=== PATIENT | female | born 1950 | race Caucasian/White ===

== ENCOUNTER → 2018-05-01 01:33 | Outpatient (CLI) | payer OTHER, SELFPAY ==
--- NOTE | 2018-05-01 11:22 | DI.REPORT_ITS ---
SYMPTOMS/DIAGNOSIS: SCREENING, Z12.31 MAMMOGRAM: Mammograms were interpreted according to the usual protocol including computer analysis with CAD system, tomosynthesis and C view imaging. Comparison with prior examinations. Breast density B. No suspicious masses or microcalcifications are seen. The well circumscribed nodule in the inferior right breast appears stable. The skin and axilla are unremarkable. IMPRESSION: No evidence for malignancy. Yearly mammography is recommended. Category 2. MQSA ASSESSMENT OF FINDINGS: Negative with benign findings. Category 2. Patient will receive a letter notifying them of these results. BI-RADS category B. There are scattered areas of fibroglandular density.
== END ==
PROVIDERS: Visit Provider Nurse Practitioner Family
DX: Z12.31 Encounter for screening mammogram for malignant neoplasm of breast (principal)
CPT/HCPCS: 77063; 77067

== ENCOUNTER 2018-05-23 18:09 | Outpatient (REF) | payer OTHER, SELFPAY ==
[2018-05-23 22:00] LABS: Abs Immature Grans 0.02 k/cumm (0.0-0.09); Absolute Basophil Count 0.02 k/cumm (0.0-0.2); Absolute Eosinophil Count 0.14 k/cumm (0.0-0.7); Absolute Monocyte Count 0.69 k/cumm (0.11-0.7); Basophils % 0.3; HCT 38.6 % (36.0-46.0); HGB 12.9 g/dL (12.0-15.5); Immature Grans % 0.3; Mean Corp. HGB Concentration 33.4 g/dL (32.0-36.0); Mean Corpuscular Hemoglobin 30.1 pg (27.0-33.0); Mean Platelet Volume 11.8 fL (8.0-11.0); Monocytes % 9.8; Neutrophils % 46.6; Platelet Count 276 x1000/uL (130-400); RBC 4.29 m/cumm (4.00-5.20); RBC Distribution Width 14.3 % (11.7-14.6); White Blood Cell Count 7.07 k/cumm (4.4-10.8)
[2018-05-23 22:22] LABS: ALT 19 U/L (12-78); AST 12 U/L (15-37); Albumin 3.7 g/dL (3.4-5.0); Alkaline Phosphatase 64 U/L (46-116); Anion Gap 9.7 mmol/L (3-11); BUN 14 mg/dL (7-18); Bilirubin, Total 0.2 mg/dL (0.2-1.0); CO2 28.3 mmol/L (21.0-32.0); CREATININE 0.86 mg/dL (0.55-1.02); Calcium 9.1 mg/dL (8.5-10.1); Chloride 102 mmol/L (98-107); Glucose 98 mg/dL (70-100); Potassium 3.9 mmol/L (3.5-5.1); Sodium 140 mmol/L (136-145); Total Protein 6.6 g/dL (6.4-8.2)
[2018-05-23 22:42] LABS: Iron 34 ug/dL (50-175); Total Iron Binding Capacity 269 ug/dL (250-450); Transferrin Sat 13 % (15-50)
[2018-05-23 22:47] LABS: Hemoglobin A1C 5.9 % (4.5-6.2)
[2018-05-24 00:27] LABS: Ferritin 63 ng/mL (8-388)
== END 2018-05-23 18:29 ==
LOC: NCHCN 18:09
PROVIDERS: Visit Provider Nurse Practitioner
DX: R61 Generalized hyperhidrosis (principal); R53.83 Other fatigue; F41.9 Anxiety disorder, unspecified
CPT/HCPCS: 80053; 82728; 83036; 83540; 83550; 84443; 85025

== ENCOUNTER 2018-05-25 00:33 | Outpatient (CLI) | payer OTHER, SELFPAY ==
--- NOTE | 2018-05-25 09:20 | DI.RAD_ITS ---
SYMPTOM/DIAGNOSIS: NIGHT SWEATS, R61, FATIGUE, R53.83, ANXIETY, F41.90 FRONTAL AND LATERAL CHEST: Comparison is made with 08/04/03. Heart size is within normal limits. There is tortuosity of the thoracic aorta. The lungs show no focal infiltrates, effusions or pneumothoraces. There is plate atelectasis in the left mid lung. Degenerative changes are seen in the spine. IMPRESSION: No acute pulmonary process. Atelectasis or scarring in the left mid lung.
== END 2018-05-25 00:53 ==
PROVIDERS: Visit Provider Nurse Practitioner
DX: R61 Generalized hyperhidrosis (principal); R53.83 Other fatigue; J98.4 Other disorders of lung; F41.9 Anxiety disorder, unspecified
CPT/HCPCS: 71046

== ENCOUNTER 2019-05-07 00:31 | Outpatient (CLI) | payer OTHER, SELFPAY ==
--- NOTE | 2019-05-07 09:00 | DI.MAMMO_ITS ---
SYMPTOM/DIAGNOSIS: SCREENING Z12.39 BILATERAL SCREENING MAMMOGRAM: Mammograms were interpreted according to the usual protocol including computer analysis with CAD system, tomosynthesis and C view imaging. Comparison is made with exams from 2014 through 2018. The breasts are composed of scattered fibroglandular densities, breast density category B. There is a stable nodule in the inferior right breast. No suspicious masses or suspicious microcalcifications are seen. There has been no significant change in either breast. IMPRESSION: Category 2, negative mammogram with benign findings. Yearly screening mammography is recommended. Breast density category B. MQSA ASSESSMENT OF FINDINGS: Negative with benign findings. Category 2. Patient will receive a letter notifying them of these results. BI-RADS category B. There are scattered areas of fibroglandular density.
== END 2019-05-07 00:51 ==
PROVIDERS: PCP Nurse Practitioner; Visit Provider Nurse Practitioner
DX: Z12.31 Encounter for screening mammogram for malignant neoplasm of breast (principal)
CPT/HCPCS: 77063; 77067

== ENCOUNTER 2020-05-19 12:21 | Outpatient (REF) | payer OTHER, SELFPAY ==
[2020-05-19 18:42] LABS: HCT 41.6 % (36.0-46.0); HGB 13.7 g/dL (11.2-15.7); MCH 30.1 pg (27.0-33.0); MCHC 32.9 % (32.0-36.0); MCV 91.4 fL (80-95); MPV 11.7 fL (8.0-11.0); Platelet Count 273 10^3/uL (130-400); RBC 4.55 10^6/uL (3.93-5.22); RDW 13.5 % (11.7-14.6); WBC 8.32 10^3/uL (4.4-10.8)
[2020-05-19 19:01] LABS: ALT 22 U/L (14-59); AST 16 U/L (15-37); Alkaline Phosphatase 58 U/L (46-116); BUN 11 mg/dL (7-18); Bilirubin, Total 0.4 mg/dL (0.2-1.0); CREATININE 0.84 mg/dL (0.55-1.02); Calcium 9.3 mg/dL (8.5-10.1); Calculated LDL 187 mg/dL (<100); Chloride 102 mmol/L (98-107); Cholesterol 263 mg/dL (<200); Glucose 84 mg/dL (74-106); HDL Cholesterol 46 mg/dL (40-60); Potassium 4.2 mmol/L (3.5-5.1); Sodium 138 mmol/L (136-145); Total Protein 7.1 g/dL (6.4-8.2); Triglyceride 150 mg/dL (<150)
[2020-05-19 19:03] LABS: Hemoglobin A1C 5.6 % (<5.7)
[2020-05-21 05:42] LABS: Vitamin D 25 Total 61.5 ng/ml (30-100)
== END 2020-05-19 12:41 ==
LOC: NCHCN 12:21
PROVIDERS: PCP Nurse Practitioner; Visit Provider Nurse Practitioner
DX: Z00.00 Encounter for general adult medical examination without abnormal findings (principal); R73.09 Other abnormal glucose; I10 Essential (primary) hypertension; M85.80 Other specified disorders of bone density and structure, unspecified site; Z86.2 Personal history of diseases of the blood and blood-forming organs and certain disorders involving the immune mechanism
CPT/HCPCS: 80053; 80061; 82306; 85027; 83036

== ENCOUNTER 2020-05-26 00:33 | Outpatient (CLI) | payer OTHER, SELFPAY | END 2020-05-26 00:53 | PROVIDERS: PCP Nurse Practitioner; Visit Provider Nurse Practitioner | DX: R69 Illness, unspecified (principal) ==

== ENCOUNTER 2021-05-21 07:32 | Outpatient (REF) | payer OTHER, SELFPAY ==
[2021-05-21 14:48] LABS: HCT 40.4 % (36.0-46.0); HGB 13.3 g/dL (11.2-15.7); MCHC 32.9 % (32.0-36.0); MCV 91.2 fL (80-95); MPV 12.1 fL (8.0-11.0); Platelet Count 280 10^3/uL (130-400); RBC 4.43 10^6/uL (3.93-5.22); RDW 13.9 % (11.7-14.6); RDW-SD 47.5 fL; WBC 6.03 10^3/uL (4.4-10.8)
[2021-05-21 15:09] LABS: Hemoglobin A1C 5.9 % (<5.7)
[2021-05-21 15:10] LABS: Anion Gap 10.1 mmol/L (3-11); BUN 15 mg/dL (7-18); CO2 28.9 mmol/L (21.0-32.0); CREATININE 0.9 mg/dL (0.55-1.02); Calcium 9.3 mg/dL (8.5-10.1); Calculated LDL 201 mg/dL (<100); Chloride 105 mmol/L (98-107); Cholesterol 264 mg/dL (<200); Glucose 106 mg/dL (74-106); HDL Cholesterol 46 mg/dL (40-60); Potassium 4.7 mmol/L (3.5-5.1); Sodium 144 mmol/L (136-145); Triglyceride 87 mg/dL (<150)
== END 2021-05-21 07:33 | disposition home or self-care (01) ==
LOC: NCHCN 07:32
PROVIDERS: PCP Nurse Practitioner; Visit Provider Nurse Practitioner Family
DX: I10 Essential (primary) hypertension (principal); E78.5 Hyperlipidemia, unspecified; R73.03 Prediabetes; B07.0 Plantar wart; F17.200 Nicotine dependence, unspecified, uncomplicated; Z86.2 Personal history of diseases of the blood and blood-forming organs and certain disorders involving the immune mechanism; Z00.00 Encounter for general adult medical examination without abnormal findings
CPT/HCPCS: 80048; 80061; 85027; 83036

== ENCOUNTER 2021-07-06 18:01 | Outpatient (REF) | payer OTHER, SELFPAY ==
[2021-07-06 20:15] LABS: Bilirubin Negative (Negative); Blood Large (Negative); Clarity Cloudy (Clear); Glucose Negative (Negative); Ketones Negative (Negative); Leukocyte Esterase Moderate (Negative); Nitrite Negative (Negative); Specific Gravity 1.025 (1.005-1.025); Urobilinogen 0.2 EU/dL (Up TO 0.2)
[2021-07-06 20:25] LABS: Bacteria Moderate HPF (Negative); C & S Indicated? Yes; RBC 20-50 HPF (0-2); WBC >50 HPF (0-5)
== END 2021-07-06 18:02 | disposition home or self-care (01) ==
LOC: LBN 18:01
PROVIDERS: PCP Nurse Practitioner; Visit Provider Physician Assistant
DX: N39.0 Urinary tract infection, site not specified (principal)
CPT/HCPCS: 87077; 81003; 81015; 87086; 87186

== ENCOUNTER 2021-12-07 14:03 | Outpatient (REF) | payer OTHER, SELFPAY ==
[2021-12-07 17:44] LABS: Anion Gap 9.9 mmol/L (3-11); BUN 16 mg/dL (7-18); CO2 28.1 mmol/L (21.0-32.0); CREATININE 0.9 mg/dL (0.55-1.02); Calculated LDL 165 mg/dL (<100); Chloride 104 mmol/L (98-107); Cholesterol 242 mg/dL (<200); Glucose 94 mg/dL (74-106); HDL Cholesterol 48 mg/dL (40-60); Potassium 4.5 mmol/L (3.5-5.1); Sodium 142 mmol/L (136-145); Triglyceride 149 mg/dL (<150)
[2021-12-07 17:54] LABS: HCT 39.4 % (36.0-46.0); HGB 12.7 g/dL (11.2-15.7); MCHC 32.2 % (32.0-36.0); MCV 93.1 fL (80-95); MPV 11.6 fL (8.0-11.0); Platelet Count 318 10^3/uL (130-400); RBC 4.23 10^6/uL (3.93-5.22); RDW 14.1 % (11.7-14.6); RDW-SD 48.4 fL; WBC 6.96 10^3/uL (4.4-10.8)
[2021-12-07 18:23] LABS: Hemoglobin A1C 6.1 % (<5.7)
== END 2021-12-07 14:04 | disposition home or self-care (01) ==
LOC: LBN 14:03
PROVIDERS: PCP Nurse Practitioner; Visit Provider Nurse Practitioner Family
DX: R73.03 Prediabetes (principal); I10 Essential (primary) hypertension; E78.5 Hyperlipidemia, unspecified; Z86.2 Personal history of diseases of the blood and blood-forming organs and certain disorders involving the immune mechanism
CPT/HCPCS: 80048; 80061; 85027; 83036

== ENCOUNTER 2022-09-20 18:14 | Outpatient (REF) | payer MEDICARE, SELFPAY | END 2022-09-20 18:15 | disposition home or self-care (01) | LOC: LBN 18:14 | PROVIDERS: PCP Nurse Practitioner; Visit Provider Nurse Practitioner Family | DX: L08.89 Other specified local infections of the skin and subcutaneous tissue | CPT/HCPCS: 87070; 87205 ==

== ENCOUNTER 2022-11-09 01:54 | Outpatient (CLI) | payer MEDICARE, SELFPAY ==
--- NOTE | 2022-11-09 11:48 | DI.MAMMO_ITS ---
Exam(s) MAMMO SCREENING EXAM: MAMMO SCREENING CLINICAL HISTORY: SCREENING, Z12.39 TECHNIQUE: Mammograms were interpreted according to the usual protocol including computer analysis w [place] CAD system, tomosynthesis and C-view imaging. COMPARISON: 2013 through 2018 FINDINGS: The breasts are composed of scattered fibroglandular densities, Breast Density category B. No suspicious masses or suspicious microcalcifications are seen. There is stable area of nodularity in the inferior right breast. No skin thickening or abnormal axillary lymph nodes are seen. There has been no significant change from prior exams. IMPRESSION: BI-RADS Cat 2 - Benign Findings Yearly screening mammography is recommended. Breast Density - Category B, scattered fibroglandular densities. A negative radiographic report should not delay biopsy if a dominant or clinically suspicious mass is present. Up to ten percent of cancers are not identified on mammography. A negative report may reinforce clinical impression. Adenosis and dense breasts may obscure an underlying neoplasm. False positive reports average 6 to 10%. Patient will receive a letter notifying them of these results.
== END 2022-11-09 02:14 ==
PROVIDERS: PCP Nurse Practitioner; Visit Provider Nurse Practitioner Family
DX: Z12.31 Encounter for screening mammogram for malignant neoplasm of breast (principal); R92.8 Other abnormal and inconclusive findings on diagnostic imaging of breast
CPT/HCPCS: 77063; 77067

== ENCOUNTER 2023-07-24 20:20 | Outpatient (REF) | payer MEDICARE, SELFPAY ==
[2023-07-24 20:48] LABS: Abs Immature Grans 0.02 10^3/uL (0.0-0.06); Absolute Basophil Count 0.02 10^3/uL (0.0-0.2); Absolute Eosinophil Count 0.01 10^3/uL (0.0-0.7); Absolute Lymphocyte Count 2.85 10^3/uL (1.2-3.4); Absolute Monocyte Count 0.55 10^3/uL (0.1-0.8); Absolute Neutrophil Count 5.33 10^3/uL (1.2-6.7); Basophils % 0.2; Eosinophils % 0.1; HGB 12.8 g/dL (11.2-15.7); Immature Grans % 0.2; Lymphocytes % 32.5; MCH 29.7 pg (27.0-33.0); MCHC 32.8 % (32.0-36.0); MCV 91 fL (80-95); MPV 11.9 fL (8.0-11.0); Monocytes % 6.3; Neutrophils % 60.7; Platelet Count 286 10^3/uL (130-400); RBC 4.31 10^6/uL (3.93-5.22); RDW 14.5 % (11.7-14.6); RDW-SD 48.1 fL; WBC 8.78 10^3/uL (4.4-10.8)
[2023-07-24 21:04] LABS: ALT 21 U/L (14-59); AST 19 U/L (15-37); Alkaline Phosphatase 54 U/L (46-116); Anion Gap 6.7 mmol/L (3-11); BUN 15 mg/dL (7-18); Bilirubin, Total 0.4 mg/dL (0.2-1.0); CO2 28.3 mmol/L (21.0-32.0); CREATININE 0.9 mg/dL (0.55-1.02); Calcium 9.9 mg/dL (8.5-10.1); Chloride 101 mmol/L (98-107); Estimated GFR 67.92 (mL/min/1.73m2); FREE T4 0.99 ng/dL (0.76-1.46); Glucose 97 mg/dL (74-106); Potassium 4.3 mmol/L (3.5-5.1); Sodium 136 mmol/L (136-145); TSH 1.18 uIU/mL (0.36-3.74); Total Protein 7.5 g/dL (6.4-8.2)
[2023-07-24 21:07] LABS: Hemoglobin A1C 5.7 % (<5.7)
== END 2023-07-24 20:21 | disposition home or self-care (01) ==
LOC: NCHCN 20:20
PROVIDERS: PCP Nurse Practitioner; Visit Provider Nurse Practitioner Family
DX: I10 Essential (primary) hypertension (principal); R73.03 Prediabetes; R53.83 Other fatigue
CPT/HCPCS: 80053; 83036; 84439; 84443; 85025

== ENCOUNTER 2024-04-24 23:51 | Outpatient (REF) | payer MEDICARE, OTHER, SELFPAY | END 2024-04-24 23:52 | disposition home or self-care (01) | LOC: NCHCN 23:51 | PROVIDERS: Visit Provider Nurse Practitioner Family | DX: N39.0 Urinary tract infection, site not specified (principal); B96.29 Other Escherichia coli [E. coli] as the cause of diseases classified elsewhere; R82.89 Other abnormal findings on cytological and histological examination of urine | CPT/HCPCS: 87077; 87086; 87186 ==

== ENCOUNTER 2024-04-30 02:15 | Outpatient (CLI) | payer MEDICARE, OTHER, SELFPAY ==
--- NOTE | 2024-04-30 | DI.US_ITS ---
Exam(s) US PELVIS EXAM: US PELVIS CLINICAL HISTORY: uTEROVAGINAL PROLAPSE,N81.4,H/O FIBROIDS,VAGINAL PRESSURE TECHNIQUE: Transabdominal imaging was performed using standard protocol. COMPARISON: No exams were available for comparison FINDINGS: Exam limited by suboptimal urinary bladder distension and patient body habitus. UTERUS: Not well visualized. OVARIES: Not visualized. CUL-DE-SAC: Free fluid: None. IMPRESSION: Limited exam due to inadequate bladder distention lack of trans vaginal imaging. The uterus and ov sebastian were not well visualized. DATA REPOSITORY:
== END 2024-04-30 02:35 ==
PROVIDERS: Visit Provider Nurse Practitioner Family
DX: N81.89 Other female genital prolapse (principal)
CPT/HCPCS: 76856

== ENCOUNTER 2024-05-21 01:07 | Outpatient (CLI) | payer MEDICARE, OTHER, SELFPAY ==
--- NOTE | 2024-05-21 | DI.CTLCSR_ITS ---
Exam(s) CT CHEST LUNG CANCER SCREEN EXAM: CT CHEST LUNG CANCER SCREEN CLINICAL HISTORY: NICOTINE DEPENDENCE, F17.210. TECHNIQUE: Imaging Protocol: Low Dose Technique CONTRAST MATERIAL: None COMPARISON: CR XR CHEST 2V PA LATERAL from 05/25/2018 FINDINGS: CHEST: LUNGS: There are no ominous pulmonary nodules. There are no confluent infiltrates. Some atelectasis or scarring is noted in the superior lingular segment the left lung which is also evident on chest x- ray 05/25/2018. No pleural effusions. No findings in the trachea and mainstem bronchi. There is no bronchiectasis MEDIASTINUM: There is no obvious hilar nor mediastinal adenopathy. CARDIAC: Heart size is normal. There is no pericardial effusion.The diameter of the ascending thorac ic aorta is enlarged, measuring 4.4 cm. OTHER: OSSEOUS: T12 compression fracture appears unchanged from lateral chest x-ray of 2018. Mild superior endplate compression fracture of T6 also noted. This appears to have also been previously present. IMPRESSION: 1. Left mid lung scarring as described above, unchanged from at least 2018. No ominous pulmonary nod ules. No new infiltrates nor pleural effusions nor intrathoracic adenopathy. 2. Abnormal dilatation of the ascending thoracic aorta which measures 4.4 cm diameter. Requires foll ow-up. 3. Lung RADS Cat 1S - Negative: No nodules and definitely benign nodules. Other: Clinically Significa nt or Potentially Clinically Significant Findings (non lung cancer) Lung-RADS 1.0 CATEGORIES: Category 0 - Prior chest CT exam(s) being located for comparison. Category 1 - Annual screening in 12 months. No nodules or definitely benign nodules. Category 2 - Annual screening in 12 months. Benign appearance. Nodules with low likelihood of becomin g active cancer. Category 3 - 6-month follow-up. Probably benign. Short-term follow-up suggested. Nodules with low lik elihood of becoming active cancer. Category 4A - 3-month follow-up and CT/PET if >8 mm in size. Suspicious finding. Findings which requi re additional testing. Category 4B - Findings which require additional testing and tissue sampling. Category 4X - Category 3 or 4 nodules with additional features or imaging findings that increases the suspicion of malignancy. Modifier S- Potentially clinically significant findings (non lung cancer) RADIATION DOSE DELIVERED: 25.3mGy.cm Total DLP DATA REPOSITORY: All CT scans at this facility are submitted to the National Radiology Data Registry (NRDR) Dose Index Registry (DIR) with the [employer] (ACR). RADIATION OPTIMIZATION: All CT scans at this facility use at least one of these dose optimization te chniques: automated exposure control; mA and/or kV adjustment per patient size (includes targeted exa ms where dose is matched to clinical indication); or iterative reconstruction.
== END 2024-05-21 01:27 ==
LOC: DI 01:07
PROVIDERS: Visit Provider Nurse Practitioner Family
DX: F17.210 Nicotine dependence, cigarettes, uncomplicated (principal); Z12.2 Encounter for screening for malignant neoplasm of respiratory organs; R91.8 Other nonspecific abnormal finding of lung field
CPT/HCPCS: 71271

== ENCOUNTER 2024-07-02 08:25 | Outpatient (CLI) | payer MEDICARE, OTHER, SELFPAY ==
--- NOTE | 2024-07-02 08:15 | RT.EKG_ITS ---
APPROVED REPORT Exam: Resting ECG Reason for Exam: HTN Patient Location: O HR:61 bpm ECG Measurements Heart Rate 61 AXIS AR 148 P 44 QRSd 100 QRS 35 QT 433 T -2 QTc 437 Conclusion Sinus rhythm...normal P axis, V-rate 50- [address] abnormalities
== END 2024-07-02 08:26 | disposition home or self-care (01) ==
LOC: DI.CARD 08:28
PROVIDERS: Visit Provider Internal Medicine Cardiovascular Disease
DX: I10 Essential (primary) hypertension (principal)
CPT/HCPCS: 93010

== ENCOUNTER → 2024-07-02 13:35 | Outpatient (BNVA) | payer MEDICARE, OTHER, SELFPAY | PROVIDERS: Visit Provider Internal Medicine Cardiovascular Disease | DX: I77.810 Thoracic aortic ectasia (principal); F17.210 Nicotine dependence, cigarettes, uncomplicated | CPT/HCPCS: 93005; 99203 ==

== ENCOUNTER 2024-07-19 00:40 | Outpatient (CLI) | payer MEDICARE, OTHER, SELFPAY ==
--- NOTE | 2024-07-19 14:30 | DI.US_ITS ---
APPROVED REPORT EXAM: Comprehensive 2D, Doppler, and color-flow Echocardiogram Patient Location: Out-Patient Global Account Manager: Elieser Cleveland RDCS (AE) Indications: Dilated ascending aorta Conclusion Normal left ventricular wall thickness and chamber size. Ejection fraction is 60%. Wall motion is n ormal Normal right ventricular size and function Both atria are mildly dilated Mitral annular calcification, mild mitral regurgitation Ascending aorta measures 4.08 cm Wall motion Left Ventricle The left ventricle is normal size. The left ventricular systolic function is normal. The left ventric ular ejection fraction is within the normal range. There is normal left ventricular wall thickness. T here is normal LV segmental wall motion. There is no ventricular septal defect visualized. LVEF is 60 %. Right Ventricle The right ventricle is normal size. The right ventricular systolic function is normal. Atria Left atrium mildly dilated Right atrium is mildly dilated The interatrial septum is intact with no ev idence for an atrial septal defect. Aortic Valve The aortic valve is normal in structure. Aortic valve is trileaflet. There is no aortic valvular sten osis. No aortic regurgitation is present. Mitral Valve Mitral annular calcification. No evidence of mitral valve stenosis. Mild mitral regurgitation. Tricuspid Valve The tricuspid valve is normal in structure. There is no tricuspid valve stenosis. Mild tricuspid regu rgitation. The RVSP is 26.0 mmHg. Pulmonic Valve The pulmonary valve is normal in structure. There is no pulmonic valvular stenosis. Trace pulmonic re gurgitation. Great Vessels Aortic root is mildly dilated. The ascending aorta is moderately dilated. Aortic arch is normal in c aliber. IVC is normal in size and collapses >50% with inspiration. Pericardium There is no pericardial effusion. 2D Dimensions IVSD d PLAX 0.90 cm F: 0.6-1.0 Ao Root d 3.46 cm F: 2.7 - 3.3 LVPW d PLAX 0.90 cm F: 0.6 - 1.0 Ao Asc Diam d 4.08 cm F: 2.3 - 3.1 LVID d PLAX 3.96 cm F: 3.8 - 5.2 Prox Ao Arch 2.8 cm LVDs 2.70 cm F: 2.2 - 3.5 LV EF Teichholz 60.3 % FS 31.68 % LV EDV (Teich) 68.2 mL LV ESV (Teich) 27.1 mL Stroke Vol Index (Teich) 23.89 M-Mode TAPSE 2.52 cm (M/F) >1.7 Auto EF LV EDV A4C 54.4 mL LV EDV A2C 47.6 mL LV EDV BP LV ESV A4C 22.0 mL LV ESV A2C 19.0 mL LV ESV BP LVEF(%) A4C 59.5 % LVEF(%) A2C 60.1 % LVEF(%) BP LV SV A4C 32.3 ml LV SV A2C 28.6 ml LV SV BP LV CO A4C 2.1 L/min LV CO A2C 2.0 L/min LV CO BP HR A4C 64.04 BPM HR A2C 70.29 BPM LV EDV Index (BP) LA Volume LA Length A4C 4.9 cm LA Length A2C 5.8 cm LA Area A4C s 12.81 cm2 LA Area A2C s 16.25 cm2 LA Vol A4C A-L 28.43 mL LA Vol A2C A-L 38.36 mL LA Vol Biplane A-L 36.1 mL LA Vol/BSA A4C A-L LA Vol/BSA A2C A-L LA Vol/BSA BP A-L 21.0 mL/m2 LA Vol A4C MOD 24.1 mL LA Vol A2C MOD 35.1 mL LA Vol BP MOD 31.4 mL RA Volume RA Area A4C 13.0 cm2 RA ESV A4C (A-L) 25.0mL RA Vol/BSA A4C A-L RA Length A4C 5.8 cm RA ESV A4C (MOD) 23.4mL LV Diastology MV E' medial 0.079 (>0.07 m/s) MV E Vmax 0.59 (0.4-1.3 m/s) MV E/E' MED 7.52 (<14) MV A Vmax 0.70 (0.4-1.3 m/s) MV E' lateral 0.065 (>0.1 m/s) E/A Ratio 0.8 MV E/E' LAT 9.08 (<14) MV E' Average 0.072 m/s MV E/E'(average) 8.23 Aortic Valve AoV Vmax 1.62 m/s LVOT Vmax 1.13 m/s AoV Peak Grad 10.5 mmHg LVOT Peak Grad 5.1 mmHg AoV Area (Vmax) 2.12 cm2 LVOT VTI 0.249 m AoV VTI 0.306 m LVOT Mean Grad 2.3 mmHg AoV Mean Sharad. 0.97 m/s LVOT SV 75.64 mL AoV Mean Grad 4.5 mmHg LVOT Diam s 1.95 cm AoV Area (VTI) 2.47 cm2 AV Regurg Peak Gr. 10.46 mmHg Velocity Ratio 0.70 Mitral Valve MV DT 231 (160-240 msec) MV Vmax TIPS 0.70 m/s MV Mean Grad 0.9 (<2mmHg) MV VTI 0.231 m Pulmonary Valve PV Vmax 0.66 (0.5-1.5 m/s) RVOT Vmax 0.67 m/s PV Peak Grad 1.7 mmHg RVOT Peak Gr. 1.8 mmHg PV Mean Sharad 0.43 m/s RVOT VTI 0.122 m PV Mean Grad 0.9 mmHg RVOT Mean Gr. 0.9 mmHg Tricuspid Valve RA Pressure 3.00 mmHg TR Vmax 2.40 m/s TR Peak Grad 22.9 mmHg RVSP (TR) 26.0 mmHg
== END 2024-07-19 01:00 ==
PROVIDERS: PCP Nurse Practitioner Family; Visit Provider Internal Medicine Cardiovascular Disease
DX: I77.810 Thoracic aortic ectasia (principal)
CPT/HCPCS: 93306

== ENCOUNTER 2025-06-26 03:48 | Outpatient (CLI) | payer MEDICARE, OTHER, SELFPAY ==
--- NOTE | 2025-06-26 08:15 | DI.CT_ITS ---
Exam(s) CT CHEST WO EXAM: CT CHEST WO CLINICAL HISTORY: Check aorta,ASCENDING AORTA DILATATION, I77.810. TECHNIQUE: Imaging protocol: Axial computed tomography images were obtained and coronal and sagittal reformatted images were created and reviewed. Lung Computer Aided Detection (CAD) was utilized. COMPARISON: CT CT CHEST LUNG CANCER SCREEN from 05/21/2024 FINDINGS: Tracheobronchial tree: Patent where visualized. No bronchiectasis is present. Pulmonary parenchyma: No consolidation or dominant measurable mass. There is stable parenchymal scarring bilaterally, particularly in the lung apices. Mediastinum and Shanna: No dominant adenopathy or fluid collection. The esophagus is unremarkable. Thyroid gland: Unremarkable. Pleura: No effusion or pneumothorax. Heart: Mildly enlarged. Coronary artery calcifications are present. No pericardial effusion. Aorta: The ascending thoracic aorta is enlarged measuring 4.5 x 4.5 cm. Atherosclerotic calcification is present. Upper abdomen: There is again seen a cyst in the superior pole of the left kidney. No follow-up is recommended. Lymph nodes: Within normal limits. Soft tissues: Unremarkable. Bones:Within normal limits for the patient's age. Stable old rib fractures. IMPRESSION: 1. Stable dilatation of the ascending thoracic aorta at 4.5 x 4.5 cm. 2. There is no acute pulmonary process. RADIATION DOSE DELIVERED: 202.68mGy.cm Total DLP 202.68mGy.cm Total DLP DATA REPOSITORY: All CT scans at this facility are submitted to the National Radiology Data Registry (NRDR) Dose Index Registry (DIR) with the [employer] (ACR). RADIATION OPTIMIZATION: All CT scans at this facility use at least one of these dose optimization techniques: automated exposure control; mA and/or kV adjustment per patient size (includes targeted exams where dose is matched to clinical indication); or iterative reconstruction.
== END 2025-06-26 04:08 ==
PROVIDERS: PCP Nurse Practitioner Family; Visit Provider Internal Medicine Cardiovascular Disease
DX: I77.810 Thoracic aortic ectasia (principal)
CPT/HCPCS: 71250

== ENCOUNTER → 2025-07-01 13:25 | Outpatient (BNVA) | payer MEDICARE, OTHER, SELFPAY | PROVIDERS: PCP Nurse Practitioner Family; Visit Provider Internal Medicine Cardiovascular Disease | DX: I77.810 Thoracic aortic ectasia (principal); I10 Essential (primary) hypertension | CPT/HCPCS: 99214 ==

== ENCOUNTER 2025-07-08 01:23 | Outpatient (CLI) | payer MEDICARE, OTHER, SELFPAY ==
[2025-07-08 16:04] LABS: ALT 18 U/L (14-59); AST 11 U/L (15-37); Albumin 3.6 g/dL (3.4-5.0); Alkaline Phosphatase 70 U/L (46-116); Anion Gap 10.4 mmol/L (3-11); BUN 15 mg/dL (7-18); Bilirubin, Total 0.2 mg/dL (0.2-1.0); CO2 27.6 mmol/L (21.0-32.0); Calcium 9.1 mg/dL (8.5-10.1); Chloride 101 mmol/L (98-107); Glucose 104 mg/dL (74-106); Magnesium 2.0 mg/dL (1.8-2.4); Potassium 3.4 mmol/L (3.5-5.1); Sodium 139 mmol/L (136-145); Total Protein 7.4 g/dL (6.4-8.2); Vitamin D 25 Total 44 ng/mL (30-100)
== END 2025-07-08 01:24 | disposition home or self-care (01) ==
PROVIDERS: PCP Nurse Practitioner Family; Visit Provider Student in an Organized Health Care Education/Training Program
DX: E55.9 Vitamin D deficiency, unspecified (principal); I10 Essential (primary) hypertension
CPT/HCPCS: 36415; 80053; 82306; 83735

== ENCOUNTER → 2025-07-18 03:00 | Outpatient (CLI) | payer MEDICARE, OTHER, SELFPAY ==
--- NOTE | 2025-07-18 14:48 | DI.DEXA_ITS ---
Exam(s) XR DEXA BONE DENSITY W/WO KILLIAN EXAM: XR DEXA BONE DENSITY W/WO KILLIAN CLINICAL HISTORY: ASYMPTOMATIC MENOPAUSAL STSATE Z78.0 SCREENING OSTEOPOROSIS TECHNIQUE: HoloHi-Dis([place]) Horizon C densitometer analysis of left hip, lumbar spine and left forearm. Lateral survey image of the thoracic and lumbar spine. COMPARISON: DX DEXA BONE DENSITY WITH KILLIAN from 03/06/[address] CHEST WO from 06/26/2025 FINDINGS: Lateral view of the thoracic and lumbar spine shows no evidence of compression fractures. There are degenerative changes at L3-4 which have worsened since the previous exam. This increases the bone density measurements at L3 and L4. Bone mineral density measurements of the lumbar spine correspond to a total T- score of 0.0, in the normal range. This represents a 9.7 percent increase from 2018. The increase is secondary to increases in bone density at L3 and L4 levels, likely related to degenerative disc changes. Bone mineral density measurements of the left hip correspond to a total T-score of -0.6. This is not changed from 2018 the femoral neck T-score is -2.2, in the osteopenic range.. Theleft forearm bone mineral density measurements correspond to a T-score of the distal 3rd of -1.4, in the osteopenic range. This represents a 4.3 percent increase from 2018. IMPRESSION: Normal bone mineral density of the lumbar spine. Osteopenia of the hip and forearm.
--- NOTE | 2025-07-18 15:25 | DI.MAMMO_ITS ---
Exam(s) MAMMO SCREENING EXAM: MAMMO SCREENING CLINICAL HISTORY: SCREENING MAMMO Z12.31. TECHNIQUE: Bilateral full field digital CC and MLO mammographic images were obtained with 3D tomosynthesis and utilizing computer aided detection (CAD). COMPARISON: Prior mammograms were reviewed. FINDINGS: No new left breast findings. Previously described nodular density inferiorly in the right breast is unchanged from 2016. Other smaller right breast nodular density is also unchanged from 2017. There are no new spiculated masses nor new malignant appearing microcalcification groups. There is no significant architectural distortion nor skin thickening-retraction. IMPRESSION: Stable benign-appearing findings. No radiographic evidence of malignancy. BI-RADS Category 2 - Benign Findings Breast Density - Category B - There are scattered areas of fibroglandular density. Breast density Category C or D implies that the patient has dense breast tissue. Dense breast tissue can make it harder to find cancer on a mammogram. Dense breast tissue is also associated with an increased risk of breast cancer. This information about the result of the mammogram report was provided to the patient to raise their awareness. Use this report when you speak with the patient about their risks for breast cancer, which includes their family history. At that time, you may recommend additional screening tests (Ultrasound or MRI) as these tests may add significant information. A negative radiographic report should not delay biopsy if a dominant or clinically suspicious mass is present. Up to ten percent of cancers are not identified on mammography. A negative report may reinforce clinical impression. Adenosis and dense breasts may obscure an underlying neoplasm. False positive reports average 6 to 10%. Patient will receive a letter notifying them of these results.
== END ==
PROVIDERS: PCP Nurse Practitioner Family; Visit Provider Student in an Organized Health Care Education/Training Program
DX: Z78.0 Asymptomatic menopausal state (principal); Z12.31 Encounter for screening mammogram for malignant neoplasm of breast
CPT/HCPCS: 77063; 77067; 77080